=== PATIENT | male | born 1965 | race Caucasian/White ===

== ENCOUNTER 2018-11-14 13:15 | Emergency (ER) | payer OTHER ==
[2018-11-14 13:23] VITALS: BP 139/80; PULSE 77; RESP 18; TEMP 98
--- NOTE | 2018-11-14 13:44 | ED ---
Wound/Laceration HPI - General Chief Complaint: Wound/Laceration Stated Complaint: [facility] - head injury Time Seen by Provider: 11/14/18 13:24 Source: patient Mode of arrival: ambulatory Limitations: no limitations - History of Present Illness Initial Comments: Patient is a 53-year-old male here with his father complaining of a patient denies LOC, headache, nausea vomiting, wound on the top of his head since yesterday. Patient is hearing impaired. Patient states he was cleaning something on the floor and went to stand up, and hit his head on a board that was hanging on the wall. He didn't think it was that bad. His dad looked at the wound this morning and thought they should come in. Patient denies LOC, headache, nausea and vomiting. Patient is due to have surgery for cochlear implant next week and they wanted to make sure this wound will not interfere with that. - Related Data Home Medications Medication Instructions Recorded Confirmed Hydrochlorothiazide [Hydrodiuril] 25 mg PO DAILY 01/12/14 01/12/14 Cholecalciferol (Vitamin D3) 2,000 unit PO DAILY 11/14/18 11/14/18 [Vitamin D3] Metoprolol Tartrate [Lopressor] 12.5 mg PO BID 11/14/18 11/14/18 Rosuvastatin [Crestor] 10 mg PO DAILY 11/14/18 11/14/18 Allergies Allergy/AdvReac Type Severity Reaction Status Date / Time No Known Allergies Allergy Verified 11/14/18 13:48 Review of Systems ROS Statement: Those systems with pertinent positive or pertinent negative responses have been documented in the HPI. ROS Other: All systems not noted in ROS Statement are negative. Past Medical History Past Medical History: Hearing Disorder / Deafness Additional Past Medical History / Comment(s): hearing impaired, kidney problems History of Any Multi-Drug Resistant Organisms: None Reported Additional Past Surgical History / Comment(s): finger sx Past Psychological History: No Psychological Hx Reported Smoking Status: Never smoker Past Alcohol Use History: None Reported Past Drug Use History: None Reported General Exam - General Exam Comments Initial Comments: GENERAL: Well-appearing, well-nourished and in no acute distress. HEAD: Atraumatic, normocephalic. EYES: Pupils equal round and reactive to light, extraocular movements intact, sclera anicteric, conjunctiva are normal. ENT: TMs normal, nares patent, oropharynx clear without exudates. Moist mucous membranes. NECK: Normal range of motion, supple without lymphadenopathy or JVD. LUNGS: Breath sounds clear to auscultation bilaterally and equal. No wheezes rales or rhonchi. HEART: Regular rate and rhythm without murmurs, rubs or gallops. ABDOMEN: Soft, nontender, normoactive bowel sounds. No guarding, no rebound. No masses appreciated. : Deferred EXTREMITIES: Normal range of motion, no pitting or edema. No clubbing or cyanosis. NEUROLOGICAL: Cranial nerves II through XII grossly intact. Normal speech, normal gait. PSYCH: Normal mood, normal affect. Skin: 0.5 cm abrasion on the top of the head. Very mild erythema surrounding the wound. No pain on palpation. No signs of infection. Limitations: no limitations Course Vital Signs 11/14/18 13:20 Temperature 98.0 F Pulse Rate 77 Respiratory 18 Rate Blood Pressure 139/80 O2 Sat by Pulse 98 Oximetry Procedures - Procedures Initial comment: Abrasion was cleaned, Steri-Strips applied, bacitracin ointment applied, and covered with Band-Aid. Medical Decision Making - Medical Decision Making Patient is a 53-year-old male here with his father complaining of wound on the top of his head since yesterday. The wound is superficial and already starting the healing process. Patient denies LOC, headache. No other complaints. Steri- Strips, antibiotic ointment and a Band-Aid was applied. Patient is discharged home. Disposition Clinical Impression: Abrasion of head Disposition: HOME SELF-CARE Condition: Stable Instructions (If sedation given, give patient instructions): Abrasion (ED) Additional Instructions: Please return to the Emergency Department if symptoms worsen or any other concerns. Apply antibiotic ointment and keep covered. Is patient prescribed a controlled substance at d/c from ED?: No Referrals: Nathan Cervantes MD [Primary Care Provider] - 1-2 days
== END 2018-11-14 14:10 | disposition home or self-care (01) ==
LOC: EC 13:15
DX: S00.91XA Abrasion of unspecified part of head, initial encounter (principal); H91.90 Unspecified hearing loss, unspecified ear; Z79.899 Other long term (current) drug therapy; W22.8XXA Striking against or struck by other objects, initial encounter; Y93.E5 Activity, floor mopping and cleaning; Y92.69 Other specified industrial and construction area as the place of occurrence of the external cause; Y99.0 Civilian activity done for income or pay
CPT/HCPCS: 99283

== ENCOUNTER → 2019-08-13 | Outpatient (CLI) | payer OTHER ==
--- NOTE | 2019-08-13 16:01 | XR ---
EXAMINATION TYPE: XR elbow complete RT DATE OF EXAM: 08/13/2019 CLINICAL HISTORY: Right elbow pain for one month with no known injury TECHNIQUE: Frontal, lateral and oblique images of the right elbow are obtained. COMPARISON: None FINDINGS: There is no acute fracture/dislocation evident in the right elbow. No abnormal fat pad si gns are seen. The overlying soft tissue appears unremarkable. IMPRESSION: There is no acute fracture or dislocation in the right elbow.
== END | disposition home or self-care (01) ==
LOC: RADXRMAIN 15:42
PROVIDERS: ATTEND Emergency Medicine
DX: M77.11 Lateral epicondylitis, right elbow (principal)